=== PATIENT | male | born 1975 | race African-American/Black ===

== ENCOUNTER 2019-03-15 22:13 | Emergency (ER) | payer OTHER ==
[~2019-03-15] VITALS: Ht 180.3 cm; Wt 127.0 kg
[~2019-03-15 22:13] MED LIST: ALBU6.7H
[2019-03-15 22:38] VITALS: BP 156/105
[2019-03-15] MEDS ORDERED: KETOROLAC TROMETHAMINE INJ 60 MG/2 ML VIAL IM ONE ×2 (23:18→23:30)
== END 2019-03-16 00:06 | disposition home or self-care (01) ==
LOC: ER 22:18
DX: M54.5 Low back pain (principal); J45.909 Unspecified asthma, uncomplicated; Z79.899 Other long term (current) drug therapy
CPT/HCPCS: 96372; 99283; J1885